=== PATIENT | female | born 1930 | race Two or more races ===

== ENCOUNTER 2017-01-02 15:00 | Inpatient (IN) | payer MEDICARE ==
[~2017-01-02] VITALS: Ht 152.4 cm; Wt 45.4 kg
--- NOTE | 2017-01-02 15:00 | NUR ---
3 caregivers are at bedside, pending MD evaluation. Comfort and safety measures initiated.
[2017-01-02] MEDS ORDERED: SERT25TA PO (15:30)
[2017-01-02] MEDS ORDERED: DIVA125T3 PO (15:30)
[2017-01-02] MEDS ORDERED: ATEN25TA PO (15:30)
[2017-01-02 16:55] LABS: BASOPHILS # (AUTO) 0.6 K/uL (0.0-8.0); BASOPHILS % (AUTO) 2.6 % (0.0-2.0); EOSINOPHILS # (AUTO) 0.1 K/uL (0.0-0.7); EOSINOPHILS % (AUTO) 0.6 % (0.0-7.0); HEMATOCRIT 36.8 % (37-47); HEMOGLOBIN 12.6 G/DL (12.0-16.0); LYMPHOCYTES # (AUTO) 1.8 K/UL (0.8-4.8); LYMPHOCYTES % (AUTO) 8.2 % (20.5-51.5); MEAN CORPUSCULAR HEMOGLOBIN 31.5 UUG (27.0-31.0); MEAN CORPUSCULAR HGB CONC 34 g/dL (32.0-37.0); MEAN CORPUSCULAR VOLUME 92.1 FL (81.0-99.0); MONOCYTES # (AUTO) 1.9 K/UL (0.1-1.30); MONOCYTES % (AUTO) 8.5 % (0.0-11.0); NEUTROPHILS # (AUTO) 17.6 K/UL (1.8-8.9); NEUTROPHILS % (AUTO) 80.1 % (38.5-71.5); PLATELET COUNT (AUTO) 72 K/UL (150-450)
[2017-01-02 17:05] LABS: CARBON DIOXIDE 28 mmol/L (21-32); CHLORIDE 97 mmol/L (98-107); CREATININE 0.7 mg/dL (0.6-1.3); GLUCOSE 120 mg/dL (74-106); POTASSIUM 4.2 mmol/L (3.5-5.1); UREA NITROGEN, BLOOD 20 mg/dL (7-18)
[2017-01-02 17:12] LABS: ALANINE AMINOTRANSFERASE 15 U/L (14-59); ALKALINE PHOSPHATASE 111 U/L (50-136); ASPARTATE AMINOTRANSFERASE 16 U/L (15-37); BILIRUBIN,DIRECT 0.3 mg/dL (0.0-0.2); BILIRUBIN,TOTAL 1.3 mg/dL (0.2-1.0); TOTAL PROTEIN, SERUM 8.2 g/dL (6.4-8.2)
[2017-01-02 17:16] LABS: ACETAMINOPHEN < 2.0 ug/mL (10-30)
[2017-01-02 17:24] LABS: NEUTROPHILS % (MANUAL) 75 % (42-75)
[2017-01-02 17:25] LABS: BAND % (MANUAL) 4 % (0-10); BASOPHILS % (MANUAL) 0 % (0-2); EOSINOPHILS % (MANUAL) 0 % (0-8); LYMPHOCYTES % (MANUAL) 11 % (20-40); METAMYELOCYTES % 1 % (0-1); MONOCYTES % (MANUAL) 9 % (2-10)
[2017-01-02 17:42] LABS: ETHANOL < 3 MG/DL (0-0)
--- NOTE | 2017-01-02 17:45 | NUR ---
New diaper provided. No acute change in condition seen, pending [facility]UE bed & nurse at this time.
[2017-01-02 17:58] LABS: *BILIRUBIN,URIN NEGATIVE (NEGATIVE); *BLOOD, URINE Trace-intact (NEGATIVE); *CLARITY,URINE CLOUDY (CLEAR); *COLOR,URINE YELLOW (YELLOW); *KETONES,URINE 1+ (NEGATIVE); *PROTEIN,URINE 1+ (NEGATIVE); LEUKOCYTE ESTERASE ,URINE TRACE (NEGATIVE); NITRITE, URINE NEGATIVE (NEGATIVE); UGLUCOSE NEGATIVE (NEGATIVE)
[2017-01-02 18:03] LABS: THYROID STIMULATING HORMONE 2.377 mIU/mL (0.358-3.740)
[2017-01-02 18:11] LABS: *AMPHETAMINE, URINE NEGATIVE (NEGATIVE); *BARBITURATE, URINE NEGATIVE (NEGATIVE); *CANNABINOID, URINE NEGATIVE (NEGATIVE); *COCCAINE, URINE NEGATIVE (NEGATIVE); *OPIATE, URINE NEGATIVE (NEGATIVE); *PHENCYCLIDINE SCREEN,URINE NEGATIVE (NEGATIVE)
[2017-01-02 18:23] LABS: BACTERIA,URINE MA /HPF (NONE SEEN); RBC,URINE 0-3 /HPF (0-3); SQUAMOUS EPITHELIAL CELL,UR FEW /HPF (NONE SEEN)
[2017-01-02] MEDS ORDERED: LEVOFLOXACIN 750 MG/D5W 150 ML PIGGYBACK IV ONE (20:00)
[2017-01-02] MEDS ORDERED: LEVOFLOXACIN 750MG/D5W 150 ML IV ONE (20:18)
--- NOTE | 2017-01-02 20:19 | NUR ---
TRANSFERED TO 2ND FLOOR [facility] VIA [facility]
--- NOTE | 2017-01-02 20:20 | NUR ---
Admitted to Room 204 as Tele-TD status under the services of Dr. Annie Goldsmith. Adm. Dx: Subdural bleed/head trauma. Pt confused, anxious. Azerbaijani speaking only. Placed in bed and made comfortable. Routine [facility] admission care rendered. Please see admission nursing profile. Unable to complete pt history due to unavailability of medical records from [facility] and absence of family/significant others. Pt has multiple generalized bruises. Hx frequent falls and thus fall prcautions activated.
[2017-01-02 20:30] VITALS: BP 135/83
[2017-01-02 21:00] VITALS: BP 135/83
[2017-01-02] MEDS ORDERED: ATENOLOL 25 MG TABLET PO SCH (21:15)
[2017-01-02] MEDS ORDERED: ACETAMINOPHEN 325 MG TABLET PO PRN (21:30)
[2017-01-02] MEDS ORDERED: ONDANSETRON 4 MG/2 ML VIAL IV PRN (21:30)
[2017-01-02] MEDS ORDERED: TEMAZEPAM 15 MG CAPSULE PO PRN (21:30)
[2017-01-02] MEDS ORDERED: MAGNESIUM HYDROXIDE 30 ML LIQUID UDC PO PRN (21:30)
[2017-01-02] MEDS: HYDROMORPHONE 1 MG/1 ML DISP.SYRIN IV PRN (22:00)
[2017-01-02] MEDS: IV 1/2NS 1000 ML 1,000 ML IV PRN (22:07)
[2017-01-02] MEDS ORDERED: HYDROMORPHONE 1 MG/1 ML DISP.SYRIN ONE (22:09)
[2017-01-02] MEDS: DIVALPROEX 125 MG TABLET.DR PO SCH (22:49)
[2017-01-02] MEDS: SERTRALINE HCL 50 MG TABLET PO SCH (22:49)
[2017-01-02] MEDS ORDERED: DIVALPROEX 125 MG TABLET.DR PO ONE (22:56)
[2017-01-02] MEDS ORDERED: ATENOLOL 25 MG TABLET ONE (22:57)
[2017-01-02] MEDS ORDERED: SERTRALINE HCL 50 MG TABLET ONE (22:58)
--- NOTE | 2017-01-02 23:00 | NUR ---
Override done on all due meds for HS from [facility] but when given to pt, pt spit out meds. Noted questionable ability to swallow and thus ST baileyal requested.
[2017-01-02 23:59] VITALS: BP 97/54
--- NOTE | 2017-01-03 00:01 | NUR ---
Unable to reach any family member/significant other for consent needed to do radiological procedure with contrast, variety lathe operator, Nursing Patent Drafter and MD aware. For follow up today.
[2017-01-03 00:04] VITALS: BP 97/54
[2017-01-03 04:00] VITALS: BP 139/66
--- NOTE | 2017-01-03 06:00 | NUR ---
Bath and skin care rendered; kept clean and comfortable. Pt smiling this AM, saying "Ok, Ok." In no apparent acute distress. Please see YUE flowsheet for trends and clinical data.
[2017-01-03] MEDS ORDERED: TEMAZEPAM 7.5 MG CAPSULE PO PRN (07:30)
--- NOTE | 2017-01-03 07:30 | NUR ---
RECIEVED PT LYING IN BED SOUND ASLEEP. BUT AROUSABLE TO CALL.FOLLOWS COMMANDS AND REMEMBERS HER NAME. PT SPEAKS FARSI BUT CAN ALSO SPEAK KYRGYZ. DENIES OF ANY PAIN AT THIS TIME. PT HAS A SLING ON HER LEFT ARM FOR SUPPORT. ABLE TO MOVE ALL EXTREMETIES BUT GENERALLY WEAK. HR-SR. PT DENIES OF ANY HEADACHE.
[2017-01-03 07:35] LABS: IRON, SERUM 54 ug/dL (50-175)
[2017-01-03 07:54] LABS: BASOPHILS % (AUTO) 0.3 % (0.0-2.0); EOSINOPHILS # (AUTO) 0.4 K/uL (0.0-0.7); EOSINOPHILS % (AUTO) 2.7 % (0.0-7.0); HEMOGLOBIN 11.5 G/DL (12.0-16.0); LYMPHOCYTES # (AUTO) 1.9 K/UL (0.8-4.8); LYMPHOCYTES % (AUTO) 11.8 % (20.5-51.5); MEAN CORPUSCULAR HEMOGLOBIN 31.7 UUG (27.0-31.0); MEAN CORPUSCULAR HGB CONC 35 g/dL (32.0-37.0); MEAN CORPUSCULAR VOLUME 91.3 FL (81.0-99.0); MONOCYTES # (AUTO) 1.7 K/UL (0.1-1.30); MONOCYTES % (AUTO) 10.9 % (0.0-11.0); NEUTROPHILS # (AUTO) 11.8 K/UL (1.8-8.9); NEUTROPHILS % (AUTO) 74.3 % (38.5-71.5); RED BLOOD CELL COUNT(AUTO) 3.62 MIL/UL (4.2-5.4)
[2017-01-03 07:56] LABS: ALANINE AMINOTRANSFERASE 15 U/L (14-59); ALKALINE PHOSPHATASE 93 U/L (50-136); ASPARTATE AMINOTRANSFERASE 17 U/L (15-37); BILIRUBIN,TOTAL 1.3 mg/dL (0.2-1.0); CARBON DIOXIDE 31 mmol/L (21-32); CHLORIDE 101 mmol/L (98-107); CHOLESTEROL 124 mg/dL (<200); CREATININE 0.7 mg/dL (0.6-1.3); GLUCOSE 80 mg/dL (74-106); HDL CHOLESTEROL 44 mg/dL (40-60); MAGNESIUM 1.6 mg/dL (1.8-2.4); PHOSPHOROUS 3.8 mg/dL (2.5-4.9); POTASSIUM 4.4 mmol/L (3.5-5.1); TOTAL PROTEIN, SERUM 7.1 g/dL (6.4-8.2); TRIGLYCERIDES 113 MG/DL (30-150); UREA NITROGEN, BLOOD 20 mg/dL (7-18)
[2017-01-03 08:08] VITALS: BP 135/66
[2017-01-03 08:19] LABS: HEMATOCRIT 33.1 % (37-47); PLATELET COUNT (AUTO) 53 K/UL (150-450); WHITE BLOOD COUNT (AUTO) 16.3 K/UL (4.0-11.2)
--- NOTE | 2017-01-03 08:30 | NUR ---
SEEN AND EXAMINED BY DR OLEG. CARO TO INSERT A MIDLINE IV ACCESS. PT IS A DIFFICULT IV STICK. MAIN IVF 1/2 NS AT 75ML/HR INFUSING ON THE RIGHT AC G22. AFEBRILE. PT ABLE TO SWALLOW GOOD FOR BREAKFAST BUT APPEARS TO BE POOR APPETITE.
[2017-01-03] MEDS: DIVALPROEX 125 MG TABLET.DR PO SCH ×3 (09:49→16:25)
[2017-01-03] MEDS: PANTOPRAZOLE SODIUM 40 MG TABLET.DR PO SCH (09:49)
[2017-01-03] MEDS: ATENOLOL 25 MG TABLET PO SCH ×2 (09:50→20:46)
[2017-01-03] MEDS: Z GUARD REMEDY PASTE 57 GM TUBE TOP SCH ×2 (09:52→20:47)
[2017-01-03] MEDS: MAGNESIUM SULFATE/D5W 100 ML IV SCH ×2 (10:36→12:12)
--- NOTE | 2017-01-03 11:30 | NUR ---
MIDLINE INSERTION DONE BY PICC LINE NURSE WITH AN ORDER ON RIGHT UPPER ARM.
[2017-01-03 11:34] LABS: BAND % (MANUAL) 3 % (0-10); EOSINOPHILS % (MANUAL) 2 % (0-8); LYMPHOCYTES % (MANUAL) 12 % (20-40); METAMYELOCYTES % 1 % (0-1); MONOCYTES % (MANUAL) 10 % (2-10); NEUTROPHILS % (MANUAL) 72 % (42-75)
[2017-01-03 11:46] VITALS: BP 105/55
--- NOTE | 2017-01-03 13:00 | NUR ---
STILL NO RELATIVE TO SIGN CONSENT FOR CT ANGIO. PT IS SLEEPING INTERMITTENTLY.
--- NOTE | 2017-01-03 16:00 | NUR ---
ABLE TO TALK TO HER NIECE ROLANDO AND ABLE TO CONSENT THE CT ANGIO VIA TELEPHONE. PT NEEDS TO BE NPO BEFORE THE PROCEEDURE.
[2017-01-03 16:09] VITALS: BP 107/92
[2017-01-03] MEDS: IV 1/2NS 1000 ML 1,000 ML IV PRN (16:26)
--- NOTE | 2017-01-03 17:30 | NUR ---
PM CARE RENDERED AND APPLIED FIRST STEP MATRESS. INCONTINENT AND PT HAS DIAPER.
[2017-01-03 19:00] VITALS: BP 130/64
--- NOTE | 2017-01-03 19:30 | NUR ---
nsg: pt received a/o x 1, no acute distress noted. however, c/o of pain on left arm when being moved due to left humerus fracture. lungs sound clear to auscultate. tele, SR. on 3L O2 via nc saturating at 100%, will titrate O2. on cont ivf via midline on right upper arm. scd's in place. on 1st step mattress. bed alarm on. cont to monitor.
--- NOTE | 2017-01-03 20:20 | NUR ---
nsg: Magaly, cousin, came by to check on patient. brought food such as bread, grapes, bananas for pt. refused to eat.
[2017-01-03] MEDS: DOCUSATE SODIUM 100 MG CAPSULE PO SCH (20:46)
[2017-01-03] MEDS: SERTRALINE HCL 50 MG TABLET PO SCH (20:47)
[2017-01-03] MEDS: HYDROMORPHONE 1 MG/1 ML DISP.SYRIN IV PRN (20:47)
[2017-01-03] MEDS ORDERED: DOCUSATE SODIUM 250 MG CAPSULE PO SCH (21:00)
--- NOTE | 2017-01-04 | NUR ---
nsg: pt sound asleep, HR as low as 44, non sustain, 50's SB. cont to monitor.
[2017-01-04 00:09] VITALS: BP 97/44
[2017-01-04] MEDS: HYDROMORPHONE 1 MG/1 ML DISP.SYRIN IV PRN ×3 (04:15→19:25)
[2017-01-04 04:58] VITALS: BP 123/61
--- NOTE | 2017-01-04 05:00 | NUR ---
nsg: pt slept entire night. no acute distress noted. c/o left arm pain when moved. medicated with dilaudid 0.5mg ivp. v/s stable. HR as low as 44 but non-sustain. SB to SR. cont to monitor.
[2017-01-04] MEDS: PANTOPRAZOLE SODIUM 40 MG TABLET.DR PO SCH (05:52)
[2017-01-04] MEDS: IV 1/2NS 1000 ML 1,000 ML IV PRN ×2 (06:22→21:30)
--- NOTE | 2017-01-04 07:40 | NUR ---
Pt received in bed.Awake,alert.Oriented to name,her birthday.Denies pain,discomfort.Noted with mild weakness.SR on monitor.O2 at 3l via NC.No SOB noted.Left arm with sling ,supported on pillow.Will continue to monitor.
[2017-01-04 08:00] VITALS: BP 128/56
[2017-01-04] MEDS: DIVALPROEX 125 MG TABLET.DR PO SCH ×3 (09:57→16:59)
[2017-01-04] MEDS: ATENOLOL 25 MG TABLET PO SCH ×2 (09:58→21:00)
[2017-01-04] MEDS: Z GUARD REMEDY PASTE 57 GM TUBE TOP SCH ×2 (09:58→21:00)
[2017-01-04] MEDS: CYANOCOBALAMIN 1000 MCG/ML VIAL IM SCH (09:58)
[2017-01-04 11:49] VITALS: BP 148/61
--- NOTE | 2017-01-04 13:30 | NUR ---
Medicated with Dilaudid 0.5 mg IV ,c/o left sholder.
--- NOTE | 2017-01-04 14:00 | NUR ---
Transfered to CT scan via bed.
[2017-01-04 16:02] VITALS: BP 104/23
--- NOTE | 2017-01-04 17:00 | NUR ---
Called left message regarding abnormal CT of abdomen.
[2017-01-04 19:00] VITALS: BP 133/74
[2017-01-04] MEDS: SERTRALINE HCL 50 MG TABLET PO SCH (21:00)
[2017-01-04] MEDS: DOCUSATE SODIUM 100 MG CAPSULE PO SCH (21:00)
[2017-01-05 00:01] VITALS: BP 135/62
[2017-01-05 00:02] VITALS: BP 135/62
[2017-01-05 04:28] VITALS: BP 111/57
[2017-01-05] MEDS: PANTOPRAZOLE SODIUM 40 MG TABLET.DR PO SCH (06:45)
[2017-01-05] MEDS ORDERED: LEVOFLOXACIN 500 MG/D5W 500 MG in PREMIXED 1 EACH IV SCH (08:15)
[2017-01-05 08:35] LABS: CARBON DIOXIDE 30 mmol/L (21-32); CHLORIDE 99 mmol/L (98-107); CREATININE 0.5 mg/dL (0.6-1.3); GLUCOSE 81 mg/dL (74-106); POTASSIUM 4.7 mmol/L (3.5-5.1); UREA NITROGEN, BLOOD 11 mg/dL (7-18)
[2017-01-05 08:41] LABS: ALANINE AMINOTRANSFERASE 12 U/L (14-59); ALKALINE PHOSPHATASE 89 U/L (50-136); ASPARTATE AMINOTRANSFERASE 51 U/L (15-37); BILIRUBIN,TOTAL 1.1 mg/dL (0.2-1.0); MAGNESIUM 1.9 mg/dL (1.8-2.4); TOTAL PROTEIN, SERUM 6.1 g/dL (6.4-8.2)
[2017-01-05] MEDS: CYANOCOBALAMIN 1000 MCG/ML VIAL IM SCH (08:59)
[2017-01-05] MEDS: DIVALPROEX 125 MG TABLET.DR PO SCH ×3 (08:59→16:28)
[2017-01-05] MEDS: Z GUARD REMEDY PASTE 57 GM TUBE TOP SCH ×2 (08:59→20:30)
[2017-01-05] MEDS ORDERED: LEVOFLOXACIN 500 MG/D5W 100 ML IV ONE (09:00)
[2017-01-05 09:09] LABS: BASOPHILS % (AUTO) 0.1 % (0.0-2.0); EOSINOPHILS # (AUTO) 0.4 K/uL (0.0-0.7); EOSINOPHILS % (AUTO) 2.7 % (0.0-7.0); HEMOGLOBIN 9.8 G/DL (12.0-16.0); LYMPHOCYTES # (AUTO) 1.4 K/UL (0.8-4.8); LYMPHOCYTES % (AUTO) 9.6 % (20.5-51.5); MEAN CORPUSCULAR HEMOGLOBIN 33.3 UUG (27.0-31.0); MEAN CORPUSCULAR HGB CONC 36 g/dL (32.0-37.0); MONOCYTES # (AUTO) 2.1 K/UL (0.1-1.30); MONOCYTES % (AUTO) 14.1 % (0.0-11.0); NEUTROPHILS # (AUTO) 10.9 K/UL (1.8-8.9); NEUTROPHILS % (AUTO) 73.5 % (38.5-71.5); RED BLOOD CELL COUNT(AUTO) 2.94 MIL/UL (4.2-5.4); WHITE BLOOD COUNT (AUTO) 14.8 K/UL (4.0-11.2)
[2017-01-05] MEDS: ATENOLOL 25 MG TABLET PO SCH ×2 (09:09→20:27)
[2017-01-05 09:27] LABS: PLATELET COUNT (AUTO) 49 K/UL (150-450)
[2017-01-05 11:09] LABS: BAND % (MANUAL) 7 % (0-10); EOSINOPHILS % (MANUAL) 5 % (0-8); LYMPHOCYTES % (MANUAL) 7 % (20-40); MONOCYTES % (MANUAL) 14 % (2-10)
[2017-01-05 11:10] LABS: NEUTROPHILS % (MANUAL) 67 % (42-75)
[2017-01-05 11:41] VITALS: BP 107/53
--- NOTE | 2017-01-05 13:06 | NUR ---
Pt reassignment and full SBAR report given to HELEN Beckham.
--- NOTE | 2017-01-05 13:30 | NUR ---
EAT LUNCH MOD AMT NO N/V ST EVAL OK TO HAVE PUREE DIET NO ASPIRATION
[2017-01-05 15:55] VITALS: BP 123/52
--- NOTE | 2017-01-05 16:28 | NUR ---
c/o of pain on left arm tylenol prn given as order and reposition RESTING QUIET PO FLD ENC TO MODERATE AMT NO N/V
--- NOTE | 2017-01-05 17:30 | NUR ---
SAME CONDITION STABLE HEMODYNAMIC SAFETY MEASURE PROVIDED CALL ZEPEDA WITHIN REACH AND BED ALARM ON NO RESPIRATORY DISTRESS PAIN RELIEF
--- NOTE | 2017-01-05 19:40 | NUR ---
PATIENT IS COMFORTABLE BUT CRIES. WHEN ASKED WHY, DOES NOT ANSWER. ALERT TO SELF. NO SIGNS OF DISTRESS NOTED. CALL LIGHT WITHIN REACH. SAFETY INITIATED.
[2017-01-05 20:00] VITALS: BP 131/59
--- NOTE | 2017-01-05 20:00 | NUR ---
HAS LEFT ARM SLING, ABLE TO WIGGLE FINGERS WITH NO DIFFICULTY. NO ACUTE DISTRESS NOTED. NOTED TO BE CRYING WITH NO APPARENT REASON. WILL CONTINUE TO MONITOR
[2017-01-05] MEDS: DOCUSATE SODIUM 100 MG CAPSULE PO SCH (20:27)
[2017-01-05] MEDS: SERTRALINE HCL 50 MG TABLET PO SCH (20:27)
[2017-01-06 04:06] VITALS: BP 147/68
[2017-01-06] MEDS: PANTOPRAZOLE SODIUM 40 MG TABLET.DR PO SCH (06:25)
--- NOTE | 2017-01-06 06:47 | NUR ---
PATIENT SLEPT INTERMITTENTLY THROUGHOUT THE NIGHT. NO ACUTE DISTRESS NOTED. ALL MEDS GIVEN ORDERED. NEEDS MET. CALL LIGHT WITHIN REACH. SAFETY PROVIDED THROUGHOUT THE NIGHT.
[2017-01-06] MEDS: DIVALPROEX 125 MG TABLET.DR PO SCH ×3 (08:48→16:18)
[2017-01-06] MEDS: LEVOFLOXACIN 250MG /D5W 50 ML IV SCH (08:48)
[2017-01-06] MEDS: CYANOCOBALAMIN 1000 MCG/ML VIAL IM SCH (08:48)
[2017-01-06] MEDS: Z GUARD REMEDY PASTE 57 GM TUBE TOP SCH ×2 (08:58→21:04)
[2017-01-06] MEDS: ATENOLOL 25 MG TABLET PO SCH ×2 (08:58→21:04)
[2017-01-06 10:11] LABS: EOSINOPHILS # (AUTO) 0.2 K/uL (0.0-0.7); EOSINOPHILS % (AUTO) 1.6 % (0.0-7.0); MONOCYTES # (AUTO) 1.7 K/UL (0.1-1.30)
[2017-01-06 10:21] LABS: ALANINE AMINOTRANSFERASE 13 U/L (14-59); ALKALINE PHOSPHATASE 117 U/L (50-136); ASPARTATE AMINOTRANSFERASE 30 U/L (15-37); CARBON DIOXIDE 29 mmol/L (21-32); CHLORIDE 101 mmol/L (98-107); CREATININE 0.6 mg/dL (0.6-1.3); GLUCOSE 164 mg/dL (74-106); MAGNESIUM 1.9 mg/dL (1.8-2.4); PHOSPHOROUS 2.9 mg/dL (2.5-4.9); POTASSIUM 4.3 mmol/L (3.5-5.1); TOTAL PROTEIN, SERUM 7.6 g/dL (6.4-8.2); UREA NITROGEN, BLOOD 8 mg/dL (7-18)
[2017-01-06 12:00] VITALS: BP 126/63
--- NOTE | 2017-01-06 12:04 | NUR ---
WOUND CARE CONSULT: PT PRESENTS WITH MULTIPLE BRUISES, PRESENT ON ADMISSION. RECOMMENDATIONS MADE FOR SKIN PROTECTION. DISCUSSED WITH NURSING STAFF. CHELSI SCORE CURRENTLY 14. WILL SEE PRN. FLAHERTY IN AGREEMENT WITH PLAN OF CARE. Addendum: 01/06/17 at 1205 by DIANE MAHAJAN RN Amended: Links added.
[2017-01-06 12:45] LABS: BASOPHILS % (AUTO) 0.1 % (0.0-2.0); HEMATOCRIT 34.7 % (37-47); HEMOGLOBIN 11.6 G/DL (12.0-16.0); LYMPHOCYTES # (AUTO) 0.8 K/UL (0.8-4.8); LYMPHOCYTES % (AUTO) 6.1 % (20.5-51.5); MEAN CORPUSCULAR HEMOGLOBIN 30.9 UUG (27.0-31.0); MEAN CORPUSCULAR HGB CONC 33 g/dL (32.0-37.0); MEAN CORPUSCULAR VOLUME 92.7 FL (81.0-99.0); MONOCYTES % (AUTO) 12.7 % (0.0-11.0); NEUTROPHILS # (AUTO) 10.6 K/UL (1.8-8.9); NEUTROPHILS % (AUTO) 79.5 % (38.5-71.5); PLATELET COUNT (AUTO) 88 K/UL (150-450); RED BLOOD CELL COUNT(AUTO) 3.75 MIL/UL (4.2-5.4); WHITE BLOOD COUNT (AUTO) 13.3 K/UL (4.0-11.2)
[2017-01-06 13:51] LABS: BAND % (MANUAL) 2 % (0-10); BASOPHILS % (MANUAL) 1 % (0-2); EOSINOPHILS % (MANUAL) 1 % (0-8); LYMPHOCYTES % (MANUAL) 8 % (20-40); MONOCYTES % (MANUAL) 9 % (2-10); NEUTROPHILS % (MANUAL) 79 % (42-75)
[2017-01-06 16:00] VITALS: BP 127/73
--- NOTE | 2017-01-06 17:22 | NUR ---
DC PLANNING IN PLACED, BACK TO [facility]
--- NOTE | 2017-01-06 19:30 | NUR ---
PT RECEIVED IN BED, COMFORTABLE. PT IS A/OX1. V/S STABLE. NO SIGNS OF ACUTE DISTRESS. NO COMPLAINTS OF PAIN AT THIS TIME. SAFETY MEASURE IMPLEMENTED. FALL PRECAUTIONS INITIATED. CALL LIGHT WITHIN REACH. WILL CONTINUE TO MONITOR.
[2017-01-06 20:00] VITALS: BP 132/72
[2017-01-06] MEDS: SERTRALINE HCL 50 MG TABLET PO SCH (21:03)
[2017-01-06] MEDS: DOCUSATE SODIUM 100 MG CAPSULE PO SCH (21:03)
[2017-01-07 05:05] VITALS: BP 151/77
--- NOTE | 2017-01-07 05:26 | NUR ---
PT SLEPT WELL THROUGHOUT SHIFT. V/S STABLE. NO SIGNS OF ACUTE DISTRESS. NO COMPLAINTS OF PAIN. NEEDS ATTENDED. SAFETY MAINTAINED. CALL LIGHT WITHIN REACH
[2017-01-07] MEDS: PANTOPRAZOLE SODIUM 40 MG TABLET.DR PO SCH (06:17)
--- NOTE | 2017-01-07 06:18 | NUR ---
PROTONIX HELD. UNABLE TO CRUSH MEDICATION.
--- NOTE | 2017-01-07 08:00 | NUR ---
NO ACUTE CHANGE, PAIN OR DISTRESS. LEFT ARM WITH SLING AT ALL TIMES. GOOD CAPILLARY REFILL. AFEBRILE
[2017-01-07] MEDS: DIVALPROEX 125 MG TABLET.DR PO SCH (08:36)
[2017-01-07] MEDS: LEVOFLOXACIN 250MG /D5W 50 ML IV SCH (08:36)
[2017-01-07] MEDS: CYANOCOBALAMIN 1000 MCG/ML VIAL IM SCH (08:36)
[2017-01-07] MEDS: Z GUARD REMEDY PASTE 57 GM TUBE TOP SCH (08:37)
[2017-01-07] MEDS: ATENOLOL 25 MG TABLET PO SCH (08:37)
[2017-01-07] MEDS ORDERED: LEVO500T15 PO (10:53)
[2017-01-07 12:00] VITALS: BP 109/59
--- NOTE | 2017-01-07 12:00 | NUR ---
SEEN BY BDR WITH DISCHARGE ORDER, UPSETTER SETTER UP AWARE. WILL DC TO [facility]
--- NOTE | 2017-01-07 14:27 | NUR ---
DISCHARGED TO [facility] ACCOMPANIED BY STAFF, STABLE WITH DISCHARGE INSTRUCTION
== END 2017-01-07 14:25 | DRG 85 ==
LOC: ER 15:02 → DOU 19:59 → TELE-TD 20:36 → TELE 01-04 18:03 → MED 01-05 12:30
PROVIDERS: ADMIT Internal Medicine; ATTEND Internal Medicine
DX: S06.6X0A Traumatic subarachnoid hemorrhage without loss of consciousness, initial encounter (principal); E43 Unspecified severe protein-calorie malnutrition; G92 Toxic encephalopathy; N39.0 Urinary tract infection, site not specified; D68.59 Other primary thrombophilia; K57.90 Diverticulosis of intestine, part unspecified, without perforation or abscess without bleeding; R29.6 Repeated falls; W19.XXXA Unspecified fall, initial encounter; Y93.9 Activity, unspecified; Y92.009 Unspecified place in unspecified non-institutional (private) residence as the place of occurrence of the external cause; I11.9 Hypertensive heart disease without heart failure; F02.80 Dementia in other diseases classified elsewhere, unspecified severity, without behavioral disturbance, psychotic disturbance, mood disturbance, and anxiety
CPT/HCPCS: 36415; 70030-TC; 70450; 71010; 71275; 72125; 73060; 80164; 80307; 82306; 83550; 83605; 83735; 84100; 84443; 85025; 85730; 87040; 87086; 92523; 93005; 93307; 97110; 97112; 97161; 97530; A4663; G0480; G0480-TC; J1170; J1956; J3420; J3475; J3490